=== PATIENT | male | born 1980 | race Caucasian/White ===

== ENCOUNTER 2017-05-25 22:26 | Emergency (ER) | payer OTHER ==
[~2017-05-25] VITALS: Ht 175.3 cm; Wt 114.3 kg
[~2017-05-25 22:26] MED LIST: ATV/1 PO; ESOM20CA PO; SERT-234 PO; SERT50TA PO
[2017-05-25 22:31] VITALS: TEMP 36.7; Ht 175.3 cm; Wt 114.3 kg
[2017-05-25] MEDS ORDERED: MULT-506 PO (22:56)
[2017-05-25] MEDS ORDERED: ALBUT/IPRATROP 3MG/0.5MG NEB 3 ML VIAL INH STA (23:29)
[2017-05-25] MEDS ORDERED: DEXAMETHASONE CONC 1 MG/ML 30 ML PO STA (23:29)
[2017-05-25] MEDS ORDERED: BENZONATATE 100MG CAP PO ONE (23:30)
[2017-05-25] MEDS ORDERED: DEXAMETHASONE SOD INJ 10 MG/ML VIAL ONE (23:43)
[2017-05-26] MEDS ORDERED: AZITHROMYCIN 250 MG TAB PO ONE
--- NOTE | 2017-05-26 00:18 | EMERGENCY ROOM VISIT NOTE ---
History Report prepared by Julitoibrefugio: Saqib Robbins Under the Supervision of: Dr. Corina Muse M.D. First contact with patient: 23:18 Chief Complaint: SHORTNESS OF BREATH Stated Complaint: SOB, COUGHING UNTIL LOSS OF BREATH Nursing Triage Summary: Pt reports he has had cold symptoms since May 05. Pt reports long coughing spells where he becomes severely SOB. Worse at night. Pt had bad episode today and family recommended he came here. Pt also reports H/A, right ear ache, and chills. History of Present Illness The patient is a 36 year old male who presents to the Emergency Room with complaints of intermittent episodes of coughing beginning three weeks ago. He states that he typically has fits of coughing where he is unable to breath. He states that he has even turned a little purple. The patient states that his episodes occur frequently after drinking fluids. He states that his cough produces a clear, white sputum. He has no known pulmonary issues. The patient denies any recent travel. 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 He notes that he sleeps with multiple pillows under him for elevation. The patient notes that there is a pressure behind his right ear, and his head feels "foggy". No known sick contacts. No history of asthma or COPD, patient denies history of tobacco abuse. No recent exposures to anyone with tuberculosis, patient not incarcerated. Patient not a renal compromise. Source of History: patient Onset: Three weeks ago Quality: other (coughing) Timing: intermittent, other (episodes) Modifying Factors (Worsening): drinking Associated Symptoms: + SOB (with coughing) Note: The patient also complains of a pressure behind his right ear, and his head feeling "foggy". Review of Systems See HPI for pertinent positives & negatives. A total of 10 systems reviewed and were otherwise negative. Past Medical & Surgical Medical Problems: (1) Appendectomy (2) Deep venous thrombosis of lower extremity (3) History of appendectomy (4) Otitis media Family History FH: cancer Hypertension Kidney disease Kidney stones Social History Smoking Status: Never Smoker Alcohol Use: none Drug Use: none Marital Status: single Housing Status: lives with family Occupation Status: unemployed Current/Historical Medications Scheduled Azithromycin (Zithromax), 250 MG PO DAILY Benzonatate (Tessalon Perles), 100 MG PO Q8 Multivitamin (Multivitamin), 1 TAB PO DAILY Allergies Coded Allergies: No Known Allergies (Verified , 05/25/17) Physical Exam Vital Signs Date Time Temp Pulse Resp B/P (MAP) Pulse Ox O2 Delivery O2 Flow Rate FiO2 05/26/17 00:45 75 17 118/78 96 05/25/17 23:54 64 18 112/77 96 Room Air 05/25/17 22:51 95 Room Air 05/25/17 22:31 36.7 73 18 149/93 96 Room Air Physical Exam GENERAL: alert, well appearing, well nourished, no distress, non-toxic HEAD: Normocephalic, atraumatic. No mastoid or sinus tenderness to palpation. EYE EXAM: normal conjunctiva, PERRL and EOM's grossly intact OROPHARYNX: no exudate, no erythema, lips, buccal mucosa, and tongue normal and mucous membranes are moist. Mild bulging of the right TM. No erythema. No air fluid level. Normal canal. NECK: supple, no nuchal rigidity, no adenopathy, non-tender LUNGS: Diminished breath sounds. No wheezes, rhonchi or rales. HEART: no murmurs, S1 normal and S2 normal ABDOMEN: abdomen soft, non-tender, normo-active bowel sounds, no masses, no rebound or guarding. BACK: Back is symmetrical on inspection and there is no deformity, no midline tenderness, no CVA tenderness. SKIN: no rashes and no bruising UPPER EXTREMITIES: upper extremities are grossly normal. LOWER EXTREMITIES: No pitting edema. NEURO EXAM: Normal sensorium, cranial nerves II-XII grossly intact, normal speech, no gross weakness of arms, no gross weakness of legs. Medical Decision & Procedures ER Provider Diagnostic Interpretation: Two View Chest X-ray interpreted by me: No effusion. No cardiomegaly. No wide mediastinum. No focal infiltrate. No pulmonary edema. Medications Administered Medications (Trade) Dose Ordered Sig/Yuliet Route Start Time Stop Time Status Last Admin Dose Admin Albuterol/ Ipratropium (Duoneb) 3 ml NOW STAT INH 05/25/17 23:29 05/25/17 23:30 DC 05/25/17 23:51 3 ML Benzonatate (Tessalon Perles Cap) 100 mg NOW ONCE PO 05/25/17 23:30 05/25/17 23:31 DC 05/25/17 23:51 100 MG Dexamethasone Sodium Phosphate (Decadron Inj) 10 mg STK-MED ONCE .ROUTE 05/25/17 23:43 05/25/17 23:44 DC 05/25/17 23:51 10 MG Azithromycin (Zithromax Tab) 500 mg NOW ONCE PO 05/26/17 00:00 05/26/17 00:01 DC 05/26/17 00:01 500 MG Albuterol (Ventolin Hfa Inhaler) 2 puffs NOW ONCE INH 05/26/17 00:30 05/26/17 00:31 DC 05/26/17 00:37 2 PUFFS ECG Indication: SOB/dyspnea Rate (beats per minute): 76 Rhythm: normal sinus Findings: no acute ischemic change, other (Normal axis. Normal intervals. ) ED Course 0: The patient was evaluated in room C5. A complete history and physical exam was performed. 9: Ordered Decadron Conc Soln 10 mg PO, DuoNeb 3 mL INH, Tessalon Perles Cap 100 mg PO. 0000: I reassessed the patient. He is resting comfortably receiving his nebulizer treatment. I updated him on his test results. Ordered Zithromax Tab 500 mg PO. 0030: Ordered Ventolin Hfa Inhaler 2 puffs INH. Upon reevaluation, the patient is feeling better. I discussed the findings and the treatment plan with the patient. He verbalizes agreement and understanding. The patient was discharged home. Medical Decision Differential diagnosis: Etiologies such as infections, reactive airway disease, pneumonia, pneumothorax , COPD, CHF, cardiac ischemia, pulmonary embolism, musculoskeletal, gastrointestinal, as well as others were entertained. Patient well-appearing here despite persistent cough. Patient treated for likely bronchitis, started on antibiotics given symptoms persisted for 3 weeks. No history risk factors to suggest additional occult infection including tuberculosis. Doubt effusion, tamponade, PE. No focal infiltrate noted on chest x-ray, doubt ACS. Discussed with patient follow-up with family doctor, symptoms to watch and return for, use of MDI and spacer, use of antibiotics, he verbalized understanding was agreeable with plan. Medication Reconcilliation Current Medication List: was personally reviewed by me Blood Pressure Screening Patient's blood pressure: Elevated blood pressure Blood pressure disposition: Elevated BP felt to be situational Impression Primary Impression: Acute bronchitis Additional Impression: Bronchospasm Scribe Attestation The scribe's documentation has been prepared under my direction and personally reviewed by me in its entirety. I confirm that the note above accurately reflects all work, treatment, procedures, and medical decision making performed by me. Departure Information Dispostion Home / Self-Care Prescriptions Benzonatate (Tessalon Perles) 100 Mg Cap 100 MG PO Q8 for Cough, #20 CAP Prov: Rena Monte, DO 05/26/17 Azithromycin (Zithromax) 250 Mg Tab 250 MG PO DAILY, #4 TAB Prov: Rena Monte, DO 05/26/17 Referrals No Doctor, Assigned (PCP) Patient Instructions My [facility] Additional Instructions Please take the antibiotics as prescribed. Please drink plenty of water. You may use the inhaler as needed up to every 4 hours. If you have any worsening cough, notice blood in your sputum, develop fevers/chills, vomiting, chest pain , or you have any other new or concerning symptoms, please return to the emergency room. Problem Qualifiers Primary Impression: Acute bronchitis Bronchitis organism: unspecified organism Qualified Codes: J20.9 - Acute bronchitis, unspecified
[2017-05-26] MEDS ORDERED: BENZ100C84 PO (00:24)
[2017-05-26] MEDS ORDERED: AZIT250T PO (00:24)
[2017-05-26] MEDS ORDERED: ALBUTEROL HFA 8 GM INHALER INH ONE (00:30)
[2017-05-26 00:45] VITALS: BP 118/78; PULSE 75; O2SAT 96
--- NOTE | 2017-05-26 06:03 | DIAGNOSTIC IMAGING REPORT ---
CHEST 2 VIEWS ROUTINE CLINICAL HISTORY: sob, cough dyspnea COMPARISON STUDY: 01/12/2014 FINDINGS: The bones soft tissues and hemidiaphragms are normal. The cardiomediastinal silhouette is normal. The lungs are clear. The pulmonary vasculature is normal. IMPRESSION: Negative chest. The above report was generated using voice recognition software. It may contain grammatical, syntax or spelling errors. Electronically signed by: Krishan Marcus M.D. 05/26/2017 6:02 AM Dictated Date/Time: 05/26/2017 6:02 AM
== END 2017-05-26 00:45 | disposition home or self-care (01) ==
LOC: C.EDB 22:28 → C.EDC 05-26 00:45
DX: J20.9 Acute bronchitis, unspecified (principal); Z86.718 Personal history of other venous thrombosis and embolism; Z98.890 Other specified postprocedural states; Z79.899 Other long term (current) drug therapy; Z80.9 Family history of malignant neoplasm, unspecified; Z82.49 Family history of ischemic heart disease and other diseases of the circulatory system; Z84.1 Family history of disorders of kidney and ureter

== ENCOUNTER 2017-06-09 03:26 | Emergency (ER) | payer OTHER ==
[~2017-06-09] VITALS: Ht 175.3 cm; Wt 115.1 kg
[~2017-06-09 03:26] MED LIST changes: -ATV/1 PO; +AZIT250T PO; +BENZ100C84 PO; -ESOM20CA PO; +MULT-506 PO; -SERT-234 PO; -SERT50TA PO
[2017-06-09 03:34] VITALS: TEMP 37; Ht 175.3 cm; Wt 115.1 kg
[2017-06-09] MEDS ORDERED: ALBUT/IPRATROP 3MG/0.5MG NEB 3 ML VIAL INH STA (03:59)
--- NOTE | 2017-06-09 04:42 | EMERGENCY ROOM VISIT NOTE ---
History Report prepared by Oksana: Gia Sherman Under the Supervision of: Dr. Jose Luis Fink D.O. First contact with patient: 03:59 Chief Complaint: COUGH Stated Complaint: SHORT OF BREATH Nursing Triage Summary: Patient arrived BLS for evaluation of cough. Patient reports he woke up and felt like he couldn't breath and felt as if he was going to pass out or vomit. Patient reports he has had these "coughing episodes" for the past 5 weeks. Was seen here recently for same symptoms and given a Z-pack and albuterol inhaler. Patient denies pain. History of Present Illness The patient is a 36 year old male who presents to the Emergency Room with complaints of an episode of SOB around 0200. The patient presents to the ED by EMS. He woke up around 0200 suddenly, gasping for air. He felt like he might pass out because he could not breathe. He called EMS. This was the 3rd night in a row that he experienced this. Today's episode was the worst. He has been having chest cold symptoms for the past 4 weeks. He has been having coughing spells. He was seen in the ED 1 week ago and given an inhaler and a Z-john which did help. 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 He denies any history of asthma or sleep apnea. Source of History: patient Onset: 0200 Position: other (global) Quality: other (SOB) Timing: other (episodic) Associated Symptoms: + cough Review of Systems See HPI for pertinent positives & negatives. A total of 10 systems reviewed and were otherwise negative. Past Medical & Surgical Medical Problems: (1) Appendectomy (2) Deep venous thrombosis of lower extremity (3) History of appendectomy (4) Otitis media Family History FH: cancer Hypertension Kidney disease Kidney stones Social History Smoking Status: Never Smoker Alcohol Use: none Drug Use: none Marital Status: single Housing Status: lives with family Occupation Status: unemployed Current/Historical Medications Scheduled Multivitamin (Multivitamin), 1 TAB PO DAILY Allergies Coded Allergies: No Known Allergies (Verified , 05/25/17) Physical Exam Vital Signs Date Time Temp Pulse Resp B/P (MAP) Pulse Ox O2 Delivery O2 Flow Rate FiO2 06/09/17 03:35 70 06/09/17 03:34 37.0 86 18 124/83 95 Room Air Physical Exam CONSTITUTIONAL/VITAL SIGNS: Reviewed / noted above. GENERAL: Non-toxic in appearance. INTEGUMENTARY: Warm, dry, and [place]. HEAD: Normocephalic. EYES: without scleral icterus or trauma. ENT/OROPHARYNX: clear and moist. LYMPHADENOPATHY/NECK: Is supple without lymphadenopathy or meningismus. RESPIRATORY: Lungs clear and equal. CARDIOVASCULAR: Regular rate and rhythm. GI/ABDOMEN: Soft and nontender. No organomegaly or pulsatile mass. No rebound or guarding. Normal bowel sounds. EXTREMITIES: Warm and well perfused. BACK: No CVA tenderness. NEUROLOGICAL: Intact without focal deficits. PSYCHIATRIC: normal affect. MUSCULOSKELETAL: Normally developed with good muscle tone. Medical Decision & Procedures ER Provider Diagnostic Interpretation: Chest x-ray:per my interpretation is negative for acute disease. No pneumothorax or pneumonia. Medications Administered Medications (Trade) Dose Ordered Sig/Yuliet Route Start Time Stop Time Status Last Admin Dose Admin Albuterol/ Ipratropium (Duoneb) 3 ml NOW STAT INH 06/09/17 03:59 06/09/17 04:01 DC 06/09/17 04:21 3 ML ED Course 0407: Previous medical records were reviewed. The patient was evaluated in room A9B. A complete history and physical examination was performed. 0359: Duoneb 3 ml INH. 0443: On reevaluation, the patient is resting comfortably. I discussed the results and findings with the patient. He verbalized agreement of the treatment plan. He was discharged home. Medical Decision the differential was considered includes acute myocardial infarction, acute coronary syndrome, myocarditis, pericarditis, pericardial effusions /tamponade, esophageal perforation, pulmonary embolism, pneumonia, pneumothorax, cardiomyopathy, congestive heart, anemia , COPD/asthma exacerbation. This is a 36-year-old male who presents to the ED with a chief complaint of a cough. The patient states that around 2 AM he awoke gasping and choking and gagging. He came in for evaluation of this. The patient has normal vital signs and a normal pulse ox and he is in no acute distress. He has a occasional cough. The patient states that he has been on Zithromax for the same. He has had the symptoms for about 5 weeks without resolution. He had a chest x-ray couple of weeks ago. Today's exam is completely normal. His vital signs are completely normal. His chest x-ray is normal. The patient was told the results. He is felt to be stable for discharge. Medication Reconcilliation Current Medication List: was personally reviewed by me Blood Pressure Screening Patient's blood pressure: Normal blood pressure Blood pressure disposition: Did not require urgent referral Impression Primary Impression: Cough Scribe Attestation The scribe's documentation has been prepared under my direction and personally reviewed by me in its entirety. I confirm that the note above accurately reflects all work, treatment, procedures, and medical decision making performed by me. Departure Information Dispostion Home / Self-Care Referrals Susanne Tolentino C.R.NMg (PCP) Patient Instructions My [facility] Additional Instructions Follow-up with your doctor for further care and evaluation in 1-2 days. Return to the emergency department for worsening or new symptoms or any concerns. You have been examined and treated today on an emergency basis only. This is not a substitute for, or an effort to provide, complete comprehensive medical care. It is impossible to recognize and treat all injuries or illnesses in a single emergency department visit. It is therefore important that you follow up closely with your doctor. Call as soon as possible for an appointment. Talk to your doctor about sleep studies and CPAP.
[2017-06-09 04:58] VITALS: BP 119/62; PULSE 84; O2SAT 95
--- NOTE | 2017-06-09 06:42 | DIAGNOSTIC IMAGING REPORT ---
CHEST ONE VIEW PORTABLE CLINICAL HISTORY: cough dyspnea COMPARISON STUDY: 05/25/2017 FINDINGS: Mild bibasilar atelectasis. Lungs otherwise are clear. Mild elevation right hemidiaphragm. IMPRESSION: Mild bibasilar atelectasis. Otherwise negative study. The above report was generated using voice recognition software. It may contain grammatical, syntax or spelling errors. Electronically signed by: Krishan Marcus M.D. 06/09/2017 6:41 AM Dictated Date/Time: 06/09/2017 6:40 AM
== END 2017-06-09 04:59 | disposition home or self-care (01) ==
LOC: C.EDA 03:26 → EDBD 03:26 → C.EDA 04:59
DX: R05 Cough (principal); Z86.718 Personal history of other venous thrombosis and embolism; Z80.9 Family history of malignant neoplasm, unspecified; Z82.49 Family history of ischemic heart disease and other diseases of the circulatory system; Z84.1 Family history of disorders of kidney and ureter

== ENCOUNTER 2018-01-12 02:44 | Emergency (ER) | payer OTHER ==
[~2018-01-12] VITALS: Ht 175.3 cm; Wt 135.5 kg
[~2018-01-12 02:44] MED LIST changes: -AZIT250T PO; -BENZ100C84 PO
[2018-01-12 02:49] VITALS: TEMP 36.9; Ht 175.3 cm; Wt 135.5 kg
[2018-01-12] MEDS ORDERED: LIDOCAINE HCL 2% VISC SOLN 20 ML UDC ONE (02:53)
[2018-01-12] MEDS ORDERED: ALUMINUM/MAGNESIUM SUSP 30 ML UDC ONE (02:53)
--- NOTE | 2018-01-12 02:59 | EMERGENCY ROOM VISIT NOTE ---
History Report prepared by Oksana: Lanny Ames Under the Supervision of: Dr. Marlin Cunningham D.O. First contact with patient: 02:46 Chief Complaint: CHEST PAIN Stated Complaint: CHEST PAIN/ANXIETY History of Present Illness The patient is a 37 year old male who presents to the Emergency Room with complaints of constant burning sensation in his chest since 0100 this morning. He currently rates his pain a 6/10 in severity. The patient has been drinking Vodka with Redbull this evening. He reports shortness of breath. He notes the pain is all across his chest. He notes his heart rate was elevated; he felt his heart racing. He states that he could barely walk because he was shaking. He states that he felt scared and anxious. He reports having chest pain in the past , though denies this degree of severity. He felt there was acid reflux. He states that he had pizza for dinner and then had cake and ice cream. He states he was not eating while he was drinking alcohol tonight. He denies any abdominal pain. He has a history of acid reflux and takes Omezaprole. He is a freelance contractor. He has a history of bleeding ulcers and anxiety. Source of History: patient Onset: since 0100 this morning Position: chest Symptom Intensity: 6/10 Quality: burning Timing: constant Associated Symptoms: + SOB, No abdominal pain Note: Notes heart racing, anxiety, shaking Review of Systems See HPI for pertinent positives & negatives. A total of 10 systems reviewed and were otherwise negative. Past Medical & Surgical Medical Problems: (1) Abdominal pain (2) Acid reflux (3) Anxiety (4) Anxiety (5) Appendectomy (6) Bleeding ulcer (7) Blood pressure elevated (8) Cephalalgia (9) Chest pain (10) Chest pain (11) Chest pain (12) Chest wall pain (13) Deep venous thrombosis of lower extremity (14) Headache (15) History of appendectomy (16) Hypertension (17) Non-cardiac chest pain (18) Otitis media (19) Positive H. pylori test Family History FH: cancer Hypertension Kidney disease Kidney stones Social History Smoking Status: Never Smoker Alcohol Use: none Drug Use: none Marital Status: single Housing Status: lives with family Occupation Status: employed Current/Historical Medications Scheduled PRN Albuterol Hfa (Ventolin Hfa), 2 PUFFS INH Q6H PRN for SOB/Wheezing Allergies Coded Allergies: No Known Allergies (Verified , 05/25/17) Physical Exam Vital Signs Date Time Temp Pulse Resp B/P (MAP) Pulse Ox O2 Delivery O2 Flow Rate FiO2 01/12/18 04:28 91 18 122/72 98 01/12/18 03:01 93 01/12/18 02:49 36.9 91 24 142/88 97 Room Air 01/12/18 02:49 97 Room Air Physical Exam General: Slightly anxious. HEENT: Head - normocephalic and atraumatic Pupils are equal, round, and reactive to light. Extraocular eye muscles are intact, and sclera are anicteric. Nose - moist nasal mucosa without discharge. Mouth - moist buccal mucosa. Oropharynx is nonerythematous and there is no tonsillar exudate or edema noted. Neck: Supple; no JVD, nuchal rigidity, cervical lymphadenopathy, or auscultated bruits. Heart: Regular rate and rhythm. There is a normal S1 and S2 with no murmurs, clicks, or gallops appreciated. Lungs: Clear to auscultation bilaterally with no wheezes, rales, or rhonchi. Abdomen: Soft, completely nontender, nondistended, with good bowel sounds. There are no palpable pulsatile masses or hepatosplenomegaly. There is no guarding, rigidity, or rebound noted. Extremities: No evidence of cyanosis, clubbing, or edema. There are easily palpable peripheral pulses. Skin: warm and dry with good turgor and no rashes. Medical Decision & Procedures ER Provider Diagnostic Interpretation: Radiology results as stated below per my review and interpretation: CHEST XR: Borderline cardiomegaly. No pulmonary infiltrate or consolidation. Laboratory Results 01/12/18 03:10 01/12/18 03:10 Test 01/12/18 03:10 Red Blood Count 4.94 M/uL (4.7-6.1) Mean Corpuscular Volume 87.7 fL (80-100) Mean Corpuscular Hemoglobin 30.0 pg (25-34) Mean Corpuscular Hemoglobin Concent 34.2 g/dl (32-36) RDW Standard Deviation 42.8 fL (36.4-46.3) RDW Coefficient of Variation 13.3 % (11.5-14.5) Mean Platelet Volume 10.0 fL (7.4-10.4) Anion Gap 6.0 mmol/L (3-11) Est Creatinine Clear Calc Drug Dose 146.8 ml/min Estimated GFR () 118.2 Estimated GFR (Non- 102.0 BUN/Creatinine Ratio 10.2 (10-20) Calcium Level 8.3 mg/dl (8.5-10.1) Total Bilirubin 0.5 mg/dl (0.2-1) Direct Bilirubin 0.1 mg/dl (0-0.2) Aspartate Amino Transf (AST/SGOT) 21 U/L (15-37) Alanine Aminotransferase (ALT/SGPT) 54 U/L (12-78) Alkaline Phosphatase 59 U/L (45-117) Total Protein 7.4 gm/dl (6.4-8.2) Albumin 4.0 gm/dl (3.4-5.0) Lipase 110 U/L (73-393) Laboratory results per my review. Medications Administered Medications (Trade) Dose Ordered Sig/Yuliet Route Start Time Stop Time Status Last Admin Dose Admin Al Hydroxide/Mg Hydroxide (Maalox Susp) 30 ml STK-MED ONCE .ROUTE 01/12/18 02:53 01/12/18 02:54 DC 01/12/18 02:58 30 ML Lidocaine HCl (Viscous Lidocaine 2% Soln) 20 ml STK-MED ONCE .ROUTE 01/12/18 02:53 01/12/18 02:54 DC 01/12/18 02:58 20 ML Procedure 0253: Ordered Lidocaine HCl 20 ml PO and Maalox 30 ml PO ECG Per My Interpretation Indication: chest pain Rate (beats per minute): 85 Rhythm: normal sinus Findings: nonspecific-ST abn, no acute ischemic change, no ectopy ED Course 0246: Past medical records reviewed. The patient was evaluated in room B7. A complete history and physical exam was performed. An IV lock was initiated and labs are drawn as above. A 12-lead EKG was obtained as described above. 0253: Ordered Lidocaine HCl 20 ml PO and Maalox 30 ml PO 0405: I reassessed the patient at this time. He is feeling better after the GI cocktail and resting comfortably. I discussed the results and treatment plan with the patient and his family/friends.. I answered all pertaining questions that he had. He expressed understanding and verbalized agreement. The patient will be discharged home. Medical Decision The patient is a 37 year old male who presents to the ED with chest pain. Differential diagnosis includes anxiety, GERD, alcohol intoxication, and cardiac ischemia. Lab results showed: No leukocytosis. Stable H&H. Potassium slightly low 3.1. Normal renal function. Normal glucose. Normal LFTs. Normal Lipase. This 37-year-old male patient presents to the emergency department with a sudden onset of burning chest pain and then anxiety. He describes the discomfort in his anterior chest wall to be close to a blowtorch. The patient then became quite anxious about the discomfort in the chest. He received a GI cocktail here in the emergency department with complete resolution of his symptoms. I spent some time talking to the patient about consuming both alcohol and caffeine at the same time as they both can contribute to significant GERD. The patient feels much better after the GI cocktail. I have suggested that the patient restart taking his omeprazole and avoid all caffeine and alcohol over the next 3-5 days. He was encouraged to follow-up with his PCP if the symptoms persisted. If symptoms worsen, he should return to the ER. Medication Reconcilliation Current Medication List: was personally reviewed by me Blood Pressure Screening Patient's blood pressure: Elevated blood pressure Blood pressure disposition: Elevated BP felt to be situational Impression Primary Impression: GERD (gastroesophageal reflux disease) Additional Impression: Anxiety Scribe Attestation The scribe's documentation has been prepared under my direction and personally reviewed by me in its entirety. I confirm that the note above accurately reflects all work, treatment, procedures, and medical decision making performed by me. Departure Information Dispostion Home / Self-Care Referrals Susanne Tolentino,C.R.N.P. (PCP) Forms Call Back Authorization, HOME CARE DOCUMENTATION FORM, IMPORTANT VISIT INFORMATION Patient Instructions Anxiety Body Response, GERD, GERD Lifestyle Changes, My [facility] Additional Instructions Rest. Avoid caffeine and alcohol Take omeprozole as directed. Follow up with PCP on Saturday if symptoms persist Problem Qualifiers Primary Impression: GERD (gastroesophageal reflux disease) Esophagitis presence: with esophagitis Qualified Codes: K21.0 - Gastro- esophageal reflux disease with esophagitis
[2018-01-12 03:16] LABS: HEMATOCRIT 43.3 % (42-52); HEMOGLOBIN 14.8 g/dL (14.0-18.0); MEAN CELL VOLUME 87.7 fL (80-100); MEAN CORPUSCULAR HGB CONC 34.2 g/dl (32-36); PLATELET COUNT 244 K/uL (130-400); RED CELL DISTRIBUTION WIDTH CV 13.3 % (11.5-14.5); RED CELL DISTRIBUTION WIDTH SD 42.8 fL (36.4-46.3); WHITE BLOOD COUNT 6.71 K/uL (4.8-10.8)
[2018-01-12 03:34] LABS: CALCIUM 8.3 mg/dl (8.5-10.1); CREATININE 0.96 mg/dl (0.60-1.40); POTASSIUM 3.1 mmol/L (3.5-5.1)
[2018-01-12 03:37] LABS: TOTAL PROTEIN 7.4 gm/dl (6.4-8.2)
[2018-01-12] MEDS ORDERED: VNTHFA/IN INH (03:38)
[2018-01-12 04:28] VITALS: BP 122/72; PULSE 91; O2SAT 98
--- NOTE | 2018-01-12 09:01 | DIAGNOSTIC IMAGING REPORT ---
SINGLE VIEW CHEST CLINICAL HISTORY: Atypical chest pain. Anxiety. FINDINGS: An AP, portable, upright chest radiograph is compared to study dated 06/09/2017. The examination is degraded by portable technique and patient rotation. The cardiomediastinal silhouette is unremarkable. There are low lung volumes with chronic elevation of the right hemidiaphragm and bibasilar atelectasis. No airspace consolidation is seen typical for pneumonia and there is no large pleural effusion. No pneumothorax is seen. The bony thorax is grossly intact. IMPRESSION: Low lung volumes with no acute cardiopulmonary abnormality. Electronically signed by: Hood Lobato M.D. 01/12/2018 9:00 AM Dictated Date/Time: 01/12/2018 8:59 AM
== END 2018-01-12 04:30 | disposition home or self-care (01) ==
LOC: EDBD 02:44 → C.EDB 02:44
DX: K21.0 Gastro-esophageal reflux disease with esophagitis (principal); F41.9 Anxiety disorder, unspecified; Z79.899 Other long term (current) drug therapy